=== PATIENT | male | born 1975 | race Caucasian/White ===

== ENCOUNTER 2019-04-20 10:08 | Inpatient (IN) | payer OTHER ==
[2019-04-20] MEDS ORDERED: DEXAMETHASONE SOD PHOSPHATE 4 MG/ML 1 ML VIAL IV STA (10:50)
[2019-04-20] MEDS ORDERED: HYDROmorphone 0.5 MG/0.5 ML SYRINGE IVP STA (10:50)
[2019-04-20] MEDS ORDERED: DIAZEPAM 5 MG/ML 2 ML INJ IVP STA (10:50)
--- NOTE | 2019-04-20 11:10 | ED ---
Back Pain HPI - General Chief Complaint: Back Pain/Injury Stated Complaint: severe back pain, leg pain Time Seen by Provider: 04/20/19 10:27 Source: patient Limitations: no limitations - History of Present Illness Initial Comments: 44-year-old male past me past medical history presenting today for chief complaint of low back pain rating down left leg to foot. Patient states this has been ongoing for quite some time and was scheduled for outpatient MRI after the first of the year. She denies any specific injury follows trauma to the back denies IV drug use fevers loss of bowel bladder control urinary retention loss of sensation or weakness of the lower extremities. Denies any rectal dysfunction. Patient denies any history of cancer. Or spasticity of the extremity. Patient states he initially was able to tolerate the symptoms however they've been worsening for the past day. Patient states is unable to find a comfortable position and can hardly walk secondary to the pain review systems negative - Related Data Home Medications Medication Instructions Recorded Confirmed Gabapentin [Neurontin] 200 mg PO HS 04/20/19 04/20/19 Hydrocodone/Acetaminophen [[place] 1 tab PO DAILY PRN 04/20/19 04/20/19 5-325] predniSONE See Taper PO DIRECTED 04/20/19 04/20/19 Allergies Allergy/AdvReac Type Severity Reaction Status Date / Time No Known Allergies Allergy Verified 04/20/19 12:26 Review of Systems ROS Statement: Those systems with pertinent positive or pertinent negative responses have been documented in the HPI. ROS Other: All systems not noted in ROS Statement are negative. Past Medical History Past Medical History: No Reported History Additional Past Medical History / Comment(s): chronic back pain History of Any Multi-Drug Resistant Organisms: None Reported Past Surgical History: No Surgical Hx Reported Past Psychological History: No Psychological Hx Reported Smoking Status: Former smoker Past Alcohol Use History: Occasional Past Drug Use History: None Reported General Exam - General Exam Comments Initial Comments: General: The patient is awake and alert, in no distress, and does not appear acutely ill. Eye: +3 m pupils are equal, round and reactive to light, extra-ocular movements are intact. No nystagmus. There is normal conjunctiva bilaterally. No signs of icterus. Ears, nose, mouth and throat: There are moist mucous membranes and no oral lesions. Neck: The neck is supple, there is no tenderness or JVD. Cardiovascular: There is a regular rate and rhythm. No murmur, rub or gallop is appreciated. Respiratory: Lungs are clear to auscultation, respirations are non-labored, breath sounds are equal. No wheezes, stridor, rales, or rhonchi. Gastrointestinal: Soft, non-distended, non-tender abdomen without masses or organomegaly noted. There is no rebound or guarding present. Musculoskeletal: Normal inspection of the thoracic or lumbar spine box and left lower extremity. No leg swelling +2 dorsalis pedis pulses equal in comparison bilaterally. Patient has normal strength of the lower extremities equal comparison bilaterally. Sensation including saddle region. No myoclonus or spasms noted. Neurological: A&O x 3. CN II-XII intact grossly, There are no obvious motor or sensory deficits. Coordination appears grossly intact. Speech is normal. Skin: Skin is warm and dry and no rashes or lesions are noted. Psychiatric: Cooperative, appropriate mood & affect, normal judgment. Limitations: no limitations Course Vital Signs 04/20/19 04/20/19 10:23 14:05 Temperature 97.6 F Pulse Rate 61 78 Respiratory 18 20 Rate Blood Pressure 135/87 128/74 O2 Sat by Pulse 98 99 Oximetry Medical Decision Making - Medical Decision Making 44-year-old male presenting today for chief complaint of left leg pain. No focal neurological deficits. Patient has full strength denies symptomology of cauda equina. No physical exam findings consistent no weakness of sensation deficits. Patient states his pain is intractable he was given multiple medications emergency department. At this time feel that patient's unsafe going home given his difficulty ambulating secondary to pain and recommended admission and observation for orthopedic consultation and inpatient MRI of the lumbar spine. Patient is agreeable prefers this care plan I discussed case attending provider spoke with the admitting provider Dr. Ramirez who accepted admission and care plan Once patient admitted, I did seem him ambulate to the bathroom, fully weight bearing around 3PM. Disposition Clinical Impression: Intractable pain, Radiculopathy, Leg pain, left Disposition: ADMITTED IP TO THIS HOSP Condition: Stable Is patient prescribed a controlled substance at d/c from ED?: No Time of Disposition: 12:33 Decision to Admit Reason: Admit from EC Decision Date: 04/20/19 Decision Time: 12:33
[2019-04-20] MEDS ORDERED: KETOROLAC 30 MG/ML 1 ML VIAL IVP STA (12:05)
[2019-04-20] MEDS ORDERED: NALOXONE 0.4 MG/ML 1 ML VIAL IV PRN (12:08)
[2019-04-20] MEDS ORDERED: ONDANSETRON 4 MG/2 ML VIAL IVP PRN (12:08)
[2019-04-20] MEDS: SODIUM CHLORIDE 0.9% 1,000 ML IV SCH (12:29)
[2019-04-20] MEDS ORDERED: HYDROcodone/APAP 10-325MG 1 EACH TAB PO PRN (13:36)
[2019-04-20] MEDS: HYDROmorphone 0.5 MG/0.5 ML SYRINGE IVP PRN ×2 (14:03→21:21)
[2019-04-20] MEDS: KETOROLAC 30 MG/ML 1 ML VIAL IVP PRN (17:48)
[2019-04-20] MEDS ORDERED: GABAPENTIN 100 MG CAP PO SCH (21:00)
[2019-04-21] MEDS: KETOROLAC 30 MG/ML 1 ML VIAL IVP PRN ×2 (01:33→07:56)
[2019-04-21] MEDS: HYDROmorphone 0.5 MG/0.5 ML SYRINGE IVP PRN ×4 (05:08→19:30)
[2019-04-21] MEDS ORDERED: POLYETHYLENE GLYCOL 3350 17 GM POWD.PACK PO PRN (12:12)
[2019-04-21] MEDS ORDERED: HYDROcodone/APAP 7.5-325MG 1 EACH TAB PO PRN (12:18)
[2019-04-21] MEDS ORDERED: DOCUSATE 100 MG CAP PO PRN (12:23)
--- NOTE | 2019-04-21 13:09 | XR ---
EXAMINATION TYPE: XR lumbar spine with bend/flex , 7 VIEWS DATE OF EXAM ORDERED: 04/21/2019 HISTORY: lumbar radiculopathy. COMPARISON: None. FINDINGS: Vertebral body height and alignment are maintained. There is no spondylolysis or spondylol isthesis. No abnormal motion of the spine is noted in flexion or extension. The facets are unremarkab le. The pedicles are intact. IMPRESSION: NORMAL LUMBAR SPINE.
[2019-04-21] MEDS: SODIUM CHLORIDE 0.9% 1,000 ML IV SCH (13:16)
--- NOTE | 2019-04-21 14:31 | MR ---
EXAMINATION TYPE: MR lumbar spine wo con DATE OF EXAM: 04/21/2019 COMPARISON: Plain film dated 04/21/2019 HISTORY: Acute LBP, LLE radic TECHNIQUE: Multiplanar, multisequence images of the lumbar spine were acquired. L1-L2: Normal disc appearance without desiccation. No herniation, protrusion or disc bulging. No ca nal stenosis is present. Foramina are patent bilaterally. L2-L3: Normal disc appearance without desiccation. No herniation, protrusion or disc bulging. No ca nal stenosis is present. Foramina are patent bilaterally. L3-L4: Normal disc appearance without desiccation. No herniation, protrusion or disc bulging. No ca nal stenosis is present. Foramina are patent bilaterally. L4-L5: Normal disc appearance without desiccation. No herniation, protrusion or disc bulging. No ca nal stenosis is present. Foramina are patent bilaterally. L5-S1: There is loss of disc height and signal at L5-S1. Posterior left paracentral disc herniation l ikely causes mass effect on the left S1 nerve root. No significant spinal stenosis or foraminal encro achment. Lumbar segments are intact. No paraspinal masses are identified. Conus medullaris has a normal appe arance. Lumbar vertebral bodies show preserved height and alignment. Bone marrow signal is maintained . IMPRESSION: Left posterior paracentral disc herniation L5-S1, correlate for left S1 radiculopathy.
[2019-04-21] MEDS: HYDROcodone/APAP 7.5-325MG 1 EACH TAB PO PRN ×2 (15:57→20:38)
--- NOTE | 2019-04-21 17:01 | P.CNOR ---
History of Present Illness - [facility] Consult date: 04/21/19 Consult reason: back pain History of present illness: Patient is a pleasant 44 year old male seen at bedside this morning in consultation for low back pain. He was admitted through the ED yesterday after increased and sustained low back pain with left lower extremity radicular complaints. He states that he first started with the low back pain around March 12, 2019 without injury. The symptoms progressed and has been being treated by his PCP including oral corticosteroids. No studies have been take to date. His pain progressed this past week with pain radiating down his left leg to his ankle/foot. He has had difficulty with ambulating and ADLs due to the pain despite the multi-day course of corticosteroids. He has had intermittent numbness or tingling into the left toes. He denies saddle anesthesia or loss of bowel/bladder. His pain continues this am without much improvement. He has no other new complaints. He denies weakness, fever, chills, chest pain, abdominal pain, shortness of breath, N/V, slurred speech, headaches, or other. Review of Systems All systems: negative Constitutional: Denies chills, Denies fever Eyes: denies blurred vision, denies pain Ears, nose, mouth and throat: Denies headache, Denies sore throat Cardiovascular: Denies chest pain, Denies shortness of breath Respiratory: Denies cough Gastrointestinal: Denies abdominal pain, Denies diarrhea, Denies nausea, Denies vomiting Musculoskeletal: Denies myalgias Integumentary: Denies pruritus, Denies rash Neurological: Reports numbness, Denies ataxia, Denies weakness Psychiatric: Denies anxiety, Denies depression Endocrine: Denies fatigue, Denies weight change Past Medical History Past Medical History: No Reported History Additional Past Medical History / Comment(s): chronic back pain, murmur History of Any Multi-Drug Resistant Organisms: None Reported Past Surgical History: No Surgical Hx Reported Past Psychological History: No Psychological Hx Reported Smoking Status: Former smoker Past Alcohol Use History: Occasional Past Drug Use History: None Reported - Past Family History Mother Family Medical History: Diabetes Mellitus, Hypertension Medications and Allergies Home Medications Medication Instructions Recorded Confirmed Type Gabapentin [Neurontin] 200 mg PO HS 04/20/19 04/20/19 History Hydrocodone/Acetaminophen [[place] 1 tab PO DAILY PRN 04/20/19 04/20/19 History 5-325] predniSONE See Taper PO DIRECTED 04/20/19 04/20/19 History Allergies Allergy/AdvReac Type Severity Reaction Status Date / Time No Known Allergies Allergy Verified 04/20/19 12:26 Physical Examination Inspection of the back and lumbar spine is benign. There is no deformity, erythema, echymoses, swelling or wounds. There is paraspinal spasm. Nontender along midline and no stepoff. No fluctuance or fluid collection. It is not hot to touch. Lower extremities: There is a positive left straight leg raise. Negative crossover. Motor appears to be intact 5/5 at L2-S1 myotomes bilaterally. Sensation to light touch is intact equally bilaterally at L2-S1 Dermatomes. Knee jerk and ankle jerk reflexes are 1+ bilaterally. Toes are downgoing with Babinski. Negative clonus. Calves are SNT. 2+ DP pulses present. Assessment and Plan (1) Radiculopathy Narrative/Plan: Patient is likely suffering from a lower lumbar (L4/5 or L5/S1) radiculopathy on the left side. I have ordered lumbar xrays and MRI. Continue pain management where I recommended: increasing gabapentin, taking oral pain meds in lieu of IV pain meds, switching to PO ketorlac and holding corticosteroids (as he has been taking for several days without improvement), and a muscle relaxant. Also advised him to do no bending at waist, lifting or twisting. Will make further recommendations pending his clinical course and Xray/MRI results. I discussed interventions may include epidural steroid injection vs surgical intervention. Current Visit: Yes Status: Acute Priority: Medium Code(s): M54.10 - R ADICULOPATHY, SITE UNSPECIFIED SNOMED Code(s): 52346544 Time with Patient: Greater than 30
[2019-04-21] MEDS: GABAPENTIN 300 MG CAP PO SCH ×2 (17:17→22:44)
[2019-04-21] MEDS: FAMOTIDINE 20 MG TAB PO SCH (20:38)
[2019-04-21] MEDS: ETODOLAC 400 MG TAB PO SCH (20:39)
[2019-04-21] MEDS: CYCLOBENZAPRINE 5 MG TAB PO PRN (22:44)
[2019-04-22] MEDS: HYDROmorphone 0.5 MG/0.5 ML SYRINGE IVP PRN ×3 (02:30→19:51)
[2019-04-22] MEDS: HYDROcodone/APAP 7.5-325MG 1 EACH TAB PO PRN ×4 (03:27→22:09)
[2019-04-22 06:42] LABS: HCT 42.3 % (39.0-53.0); HGB 14.6 gm/dL (13.0-17.5); MCH 29.7 pg (25.0-35.0); MCHC 34.5 g/dL (31.0-37.0); MCV 85.8 fL (80.0-100.0); Mean Platelet Volume 7.6; Platelet Count 168 k/uL (150-450); RBC 4.93 m/uL (4.30-5.90); RDW 12.4 % (11.5-15.5); WBC 7.3 k/uL (3.8-10.6)
[2019-04-22 06:59] LABS: African American GFR (CKD) >90 (>60 ml/min/1.73 sqM); Anion Gap 6 mmol/L; Blood Urea Nitrogen 25 mg/dL (9-20); Carbon Dioxide 29 mmol/L (22-30); Chloride 105 mmol/L (98-107); Glucose 84 mg/dL (74-99); Non-African American GFR(CKD) 86 (>60 ml/min/1.73 sqM); Potassium 4.5 mmol/L (3.5-5.1); Sodium 140 mmol/L (137-145)
[2019-04-22] MEDS: FAMOTIDINE 20 MG TAB PO SCH ×2 (08:09→19:47)
[2019-04-22] MEDS: SENNOSIDES 8.6 MG TAB PO SCH (08:10)
[2019-04-22] MEDS: GABAPENTIN 300 MG CAP PO SCH ×3 (08:10→21:02)
[2019-04-22] MEDS: ETODOLAC 400 MG TAB PO SCH ×2 (08:10→21:02)
--- NOTE | 2019-04-22 09:42 | P.HPIM ---
History of Present Illness H&P Date: 04/21/19 Patient is a pleasant 44-year-old gentleman came in with complaints of severe back pain with the shocklike sensation radiating to both lower extremities which is a radiculopathy patient denied any bowel or bladder incontinence patient received multiple doses of corticosteroids as an outpatient patient can use to have tingling numbness radiating to the back of the legs going up to the toes denies any saddle anesthesia. [facility] surgery was consulted will obtain MRA of the back. Patient will be started on Toradol along with GI prophylaxis patient is presently on Dilaudid which we will try and cut it down will increase the dose of his gabapentin teen. Patient's last bowel movement was yesterday. Review of Systems REVIEW OF SYSTEMS: CONSTITUTIONAL: No fever, no malaise, no fatigue. HEENT: No recent visual problems or hearing problems. Denied any sore throat. CARDIOVASCULAR: No chest pain, orthopnea, PND, no palpitations, no syncope. PULMONARY: No shortness of breath, no cough, no hemoptysis. GASTROINTESTINAL: No diarrhea, no nausea, no vomiting, no abdominal pain. NEUROLOGICAL: No headaches, no weakness, no numbness. HEMATOLOGICAL: Denies any bleeding or petechiae. GENITOURINARY: Denies any burning micturition, frequency, or urgency. MUSCULOSKELETAL/RHEUMATOLOGICAL: As mentioned in HPI ENDOCRINE: Denies any polyuria or polydipsia. The rest of the 14-point review of systems is negative. Past Medical History Past Medical History: No Reported History Additional Past Medical History / Comment(s): chronic back pain, murmur History of Any Multi-Drug Resistant Organisms: None Reported Past Surgical History: No Surgical Hx Reported Past Psychological History: No Psychological Hx Reported Smoking Status: Former smoker Past Alcohol Use History: Occasional Past Drug Use History: None Reported - Past Family History Mother Family Medical History: Diabetes Mellitus, Hypertension Medications and Allergies Home Medications Medication Instructions Recorded Confirmed Type Gabapentin [Neurontin] 200 mg PO HS 04/20/19 04/20/19 History Hydrocodone/Acetaminophen [[place] 1 tab PO DAILY PRN 04/20/19 04/20/19 History 5-325] predniSONE See Taper PO DIRECTED 04/20/19 04/20/19 History Allergies Allergy/AdvReac Type Severity Reaction Status Date / Time No Known Allergies Allergy Verified 04/20/19 12:26 Physical Exam Vitals: Vital Signs Temp Pulse Resp BP Pulse Ox 04/22/19 07:00 97.8 F 66 18 123/79 94 L 04/22/19 01:00 98.5 F 57 L 16 133/83 96 04/21/19 19:13 97.8 F 69 16 131/79 97 04/21/19 14:39 97.6 F 69 18 130/83 96 Intake and Output 04/21/19 04/22/19 04/22/19 22:59 06:59 14:59 Intake Total 590 180 Balance 590 180 Intake: Oral 590 180 Other: Voiding Method Toilet # Voids 1 1 PHYSICAL EXAMINATION: GENERAL: The patient is alert and oriented x3, not in any acute distress. Well developed, well nourished. She is lying in bed in pain HEENT: Pupils are round and equally reacting to light. EOMI. No scleral icterus. No conjunctival pallor. Normocephalic, atraumatic. No pharyngeal erythema. No thyromegaly. CARDIOVASCULAR: S1 and S2 present. No murmurs, rubs, or gallops. PULMONARY: Chest is clear to auscultation, no wheezing or crackles. ABDOMEN: Soft, nontender, nondistended, normoactive bowel sounds. No palpable o rganomegaly. MUSCULOSKELETAL: Did not move the patient because of his severe pain in the back EXTREMITIES: No cyanosis, clubbing, or pedal edema. NEUROLOGICAL: Gross neurological examination did not reveal any focal deficits. SKIN: No rashes. Results CBC & Chem 7: 04/22/19 06:08 04/22/19 06:08 Labs: Abnormal Lab Results - Last 24 Hours (Table) 04/22/19 Range/Units 06:08 BUN 25 H (9-20) mg/dL Thrombosis Risk Factor Assmnt - Choose All That Apply Each Factor Represents 1 point: Age 41-60 years, Obesity (BMI >25) Each Risk Factor Represents 3 Points: Family history of DVT/PE Thrombosis Risk Factor Assessment Total Risk Factor Score: 5 Thrombosis Risk Factor Assessment Level: High Risk Assessment and Plan Plan: Severe low back pain with radicular symptoms patient can barely move at this time: Patient will be started on nonsteroidal anti-inflammatories along with GI prophylaxis along with medication for constipation and neuropathic pain medication gabapentin orthopedic surgery was consulted they evaluated the pa tient, will obtain MRI of the lumbar spine. -GI prophylaxis as mentioned above
[2019-04-22 11:14] VITALS: BMI 32.7
--- NOTE | 2019-04-22 11:39 | P.PN ---
<Lorne Phoenix - Last Filed: 04/22/19 11:32> Subjective Progress Note Date: 04/22/19 Principal diagnosis: Left S1 radiculopathy Patient is seen at bedside this morning. He was seen yesterday in consultation for low back and left leg radicular type symptoms. I ordered x-rays and an MRI of the lumbar spine. We adjusted his medications and he is a little improved today. He has no new complaints. He continues to have left low back pain and left leg radicular symptoms including pain and intermittent numbness and tingling down to the foot. He has no right leg symptoms. He denies weakness. He denies fever or chills or calf pain. He has no new complaints. Objective - Vital Signs Vital signs: Vital Signs Temp 97.8 F 04/22/19 07:00 Pulse 66 04/22/19 07:00 Resp 18 04/22/19 07:00 BP 123/79 04/22/19 07:00 Pulse Ox 94 L 04/22/19 07:00 Intake & Output 04/21/19 04/22/19 04/22/19 18:59 06:59 18:59 Intake Total 590 180 Balance 590 180 Weight 103.419 kg Intake: Oral 590 180 Other: Voiding Method Toilet Toilet # Voids 3 1 - Exam inspection of the lumbar spine is benign. There is no deformity or step-off. No erythema or swelling. He has paraspinal spasming as expected. He continues to have a positive left straight leg raise. Negative crossover. His strength is 5 out of 5 at L2 through S1 myotomes. He has some hypoesthesia along the S1 dermatome on the left. Otherwise L2 through S1 dermatomes are intact equal bilaterally. Reflexes are 1+ knee jerk and ankle jerk. There is no clonus. Negative Babinski. Calves are soft nontender. 2+ dorsalis pedis pulse and 2 second capillary refill present. - Constitutional General appearance: Present: no acute distress - Labs CBC & Chem 7: 04/22/19 06:08 04/22/19 06:08 Labs: Abnormal Lab Results - Last 24 Hours (Table) 04/22/19 Range/Units 06:08 BUN 25 H (9-20) mg/dL - Imaging and Cardiology x-rays and MRI of the lumbar spine reviewed. X-rays reveal no deformity, fractures or instability. MRI of the lumbar spine shows a left paracentral disc herniation at L5-S1 compressing the descending left S1 nerve root. There is no severe canal stenosis throughout the lumbar spine. No other lesions or neural compromise seen. Assessment and Plan (1) Radiculopathy Narrative/Plan: He'll continue his current pain management regimen and activity restrictions. We'll request pain management in-house to perform a left L5-S1 epidural steroid injection to address the herniation and compression of the left S1 nerve root in hopes of alleviating his symptoms and avoiding surgical intervention. We will request it be performed as soon as possible and make further recommendations pending his clinical course. Current Visit: Yes Status: Acute Priority: Medium Code(s): M54.10 - RADICULOPATHY, SITE UNSPECIFIED SNOMED Code(s): 81803491 Time with Patient: Less than 30 <Jarred Pérez - Last Filed: 04/22/19 12:07> Objective - Vital Signs Vital signs: Vital Signs Temp 97.8 F 04/22/19 07:00 Pulse 66 04/22/19 07:00 Resp 18 04/22/19 07:00 BP 123/79 04/22/19 07:00 Pulse Ox 94 L 04/22/19 07:00 Intake & Output 04/21/19 04/22/19 04/22/19 18:59 06:59 18:59 Intake Total 590 180 Balance 590 180 Weight 103.419 kg Intake: Oral 590 180 Other: Voiding Method Toilet Toilet # Voids 3 1 - Labs CBC & Chem 7: 04/22/19 06:08 04/22/19 06:08 Labs: Abnormal Lab Results - Last 24 Hours (Table) 04/22/19 Range/Units 06:08 BUN 25 H (9-20) mg/dL Assessment and Plan Plan: The patient is seen and examined at bedside today. I discussed the case with edy Man our physician senior office support assistant sosa I agree with his prior notes. I reviewed the MRI as well. The patient has a large disc herniation at L5-S1 on the left which correlated well with his left lower extremity radiculopathy with left lower extremity hyperesthesia and small metal weakness. He has positive straight leg raise. He is not having changes in his bowel bladder function. His pain stems directly from his herniated nucleus pulses. He has essentially been failing conservative treatment over the past month and I think is a good candidate for an epidural steroid injection. We will have anesthesia pain management see him in regards to the possibility of epidural steroid injections at L5-S1 to see if that helps his radiculopathy so that he would be able to continue manage at home. Once he has his injection if he is couple going home I think it is stable from a ball or the spine standpoint. He is a good candidate for surgical intervention for laminectomy discectomy at L5-S1 with conservative measures were to fail. I discussed this with him at length discussed the nature of surgery and his herniated disc and however relates to his pain. He seems to understand these things would like to try to exhaust all conservative treatment including epidural steroid injections before considering surgical intervention. I think that is quite reasonable and I can follow him up in approximately 1-2 weeks' time for recheck evaluation to see how he is doing with his conservative treatment epidural injections and to consider the possibility of surgery. He is not having any improvement
--- NOTE | 2019-04-22 11:50 | P.PN ---
Subjective She is admitted for back pain medical neuropathy found to have disc herniation at L5-S1 level patient pain regimen after changing it nonsteroidal anti- inflammatories is much better but patient is still barely able to move patient will undergo epidural steroid injection most probably tomorrow Objective - Vital Signs Vital signs: Vital Signs Temp 97.8 F 04/22/19 07:00 Pulse 66 04/22/19 07:00 Resp 18 04/22/19 07:00 BP 123/79 04/22/19 07:00 Pulse Ox 94 L 04/22/19 07:00 Intake & Output 04/21/19 04/22/19 04/22/19 18:59 06:59 18:59 Intake Total 590 180 Balance 590 180 Weight 103.419 kg Intake: Oral 590 180 Other: Voiding Method Toilet Toilet # Voids 3 1 - Exam PHYSICAL EXAMINATION: GENERAL: The patient is alert and oriented x3, not in any acute distress. Well developed, well nourished. She is lying in bed in pain HEENT: Pupils are round and equally reacting to light. EOMI. No scleral icterus. No conjunctival pallor. Normocephalic, atraumatic. No pharyngeal erythema. No t hyromegaly. CARDIOVASCULAR: S1 and S2 present. No murmurs, rubs, or gallops. PULMONARY: Chest is clear to auscultation, no wheezing or crackles. ABDOMEN: Soft, nontender, nondistended, normoactive bowel sounds. No palpable organomegaly. MUSCULOSKELETAL: Did not move the patient because of his severe pain in the back EXTREMITIES: No cyanosis, clubbing, or pedal edema. NEUROLOGICAL: Gross neurological examination did not reveal any focal deficits. SKIN: No rashes. - Labs CBC & Chem 7: 04/22/19 06:08 04/22/19 06:08 Labs: Abnormal Lab Results - Last 24 Hours (Table) 04/22/19 Range/Units 06:08 BUN 25 H (9-20) mg/dL Assessment and Plan Plan: Severe low back pain with radicular symptoms, disc herniation at the L5-S1 level patient can barely move at this time: Patient will be started on nonsteroidal anti-inflammatories along with GI prophylaxis along with medication for constipation and neuropathic pain medication gabapentin orthopedic , MRI of lumbar spine as mentioned above and possible epidural steroid injection most probably tomorrow -GI prophylaxis as mentioned above
[2019-04-22] MEDS: CYCLOBENZAPRINE 5 MG TAB PO PRN ×2 (12:17→22:10)
[2019-04-22] MEDS: SODIUM CHLORIDE 0.9% 1,000 ML IV SCH (12:17)
--- NOTE | 2019-04-22 13:23 | P.PAINCN ---
History of Present Illness - Reason for Consult Consult date: 04/22/19 Lumbar radiculopathy - Chief Complaint Low back pain with radicular pain in the left lower extremity - History of Present Illness 44-year-old male who presents at the [facility] urged her with a chief complaint of low back pain and radicular pain down his left lower extremity to the lateral and plantar aspect of his left foot. He states this injury occurred around mid-March however symptoms regressed until this past . He does not recall any inciting event that exacerbated his current symptoms. VAS today ranges between a 7-8 out of 10 in severity, patient describes it as a constant throbbing, electric, numbing, tingling sensation in the posterior aspect of his left lower extremity into his left foot. He has significant difficulty with forward flexion or sitting in the upright position secondary to exacerbating radicular pain. Laying supine helps alleviate some of the pain. He still has consistent numbness and tingling and throbbing pain in the lateral aspect of his left foot even in the supine position. He denies any bowel or bladder incontinence, saddle anesthesia. Opening current pain medication he's not been evaluated or had any physical therapy or injections for this issue. Patient was placed on a steroid pack and no longer utilizing it. He is on Neurontin 300 mg every 8 hours, Flexeril 5 mg 3 times a day, and Silverpeak 7.5 mg/325 mg in 1-2 tablets every 6 hours as needed. He denies any side effects from the medication, states Neurontin does help the radicular pain in that Silverpeak helps alleviate some of the discomfort. Pain management was consulted for evaluation for epidural steroid injection toward the left L5-S1 interspace. Review of Systems Constitutional: Reports weakness Ears, nose, mouth and throat: Denies headache, Denies sore throat Cardiovascular: Denies chest pain, Denies shortness of breath Respiratory: Denies cough, Denies dyspnea, Denies pain on inspiration Gastrointestinal: Denies abdominal pain, Denies diarrhea, Denies nausea, Denies vomiting Genitourinary: Reports as per HPI Musculoskeletal: Reports as per HPI, Reports gait dysfunction, Reports leg numbness/tingling, Reports limitation of motion, Reports low back pain, Reports muscle cramps, Reports muscle weakness, Reports shooting leg pain Neurological: Reports as per HPI Psychiatric: Denies anxiety, Denies depression Endocrine: Reports as per HPI Hematologic/Lymphatic: Denies easy bleeding, Denies easy bruising, Denies lymphadenopathy, Denies lymphedema, Denies thrombophilia Past Medical History Past Medical History: No Reported History Additional Past Medical History / Comment(s): chronic back pain, murmur History of Any Multi-Drug Resistant Organisms: None Reported Past Surgical History: No Surgical Hx Reported Past Psychological History: No Psychological Hx Reported Smoking Status: Former smoker Past Alcohol Use History: Occasional Past Drug Use History: None Reported - Past Family History Mother Family Medical History: Diabetes Mellitus, Hypertension Medications and Allergies Home Medications Medication Instructions Recorded Confirmed Type Gabapentin [Neurontin] 300 mg PO TID 04/20/19 04/22/19 History Hydrocodone/Acetaminophen [[place]peak 1 tab PO DAILY PRN 04/20/19 04/22/19 History 5-325] Cyclobenzaprine [Flexeril] 5 mg PO TID PRN 04/22/19 04/22/19 History Allergies Allergy/AdvReac Type Severity Reaction Status Date / Time No Known Allergies Allergy Verified 04/20/19 12:26 Physical Exam Vitals: Vital Signs Temp Pulse Resp BP Pulse Ox 04/22/19 07:00 97.8 F 66 18 123/79 94 L 04/22/19 01:00 98.5 F 57 L 16 133/83 96 04/21/19 19:13 97.8 F 69 16 131/79 97 04/21/19 14:39 97.6 F 69 18 130/83 96 Intake and Output 04/21/19 04/22/19 04/22/19 22:59 06:59 14:59 Intake Total 590 180 Balance 590 180 Intake: Oral 590 180 Other: Voiding Method Toilet # Voids 1 1 Weight 103.419 kg - Constitutional General appearance: mild distress, obese - EENT Eyes: PERRLA ENT: hearing grossly normal, normal oropharynx - Cardiovascular Rhythm: regular - Integumentary Integumentary: normal, normal turgor - Neurologic Patellar reflex 2/2 - Musculoskeletal Muscle skeletal physical exam difficult secondary to patient discomfort. Unable to assess range of motion lumbar spine. straight leg raise positive on the left. Musculoskeletal: generalized weakness, left sided weakness - Psychiatric Psychiatric: A&O x's 3, appropriate affect, intact judgment & insight Results Results: MRI lumbar spine: 1. At L5-S1 there is disc desiccation with the left paracentral disc herniation which appears upon left S1 nerve root. CBC & Chem 7: 04/22/19 06:08 04/22/19 06:08 Labs: Abnormal Lab Results - Last 24 Hours (Table) 04/22/19 Range/Units 06:08 BUN 25 H (9-20) mg/dL Assessment and Plan Plan: Assessment: 1. Lumbar radiculopathy - Acute 2. Lumbar degenerative disc disease Plan: 1. Continue current medication regimen. Silverpeak when necessary, Flexeril, Neurontin can be increased to every 6 hours dosing. Patient is tolerating the medication well. 2. We'll get patient scheduled for lumbar epidural steroid injection left L5- S1. Unfortunately, [facility] pain clinic is closed this week. Patient would like epidural injection done with fluoroscopy and prior to the holidays. Option available through us would be to discharge patient and have his initial epidural steroid injection done at our pain clinic in [place]. I informed the patient that subsequent epidural injections could be done here within the Hospital clinic, or when he follows up with Dr. Nascimento, done within his group. Thank you for the consult and for allowing me to participate in this patient's care. PQRS Measure Charge Sheet PQRS Narrative: Smoking Status Former smoker Blood Pressure [Right Arm] 123/79 Blood Pressure 128/74 Pain Intensity [Left Back] 0 Pain Intensity [None] 4 Pain Intensity 7 Pain Scale Used Numeric (1 - 10) Scale Used Non Verbal Pain Indicator Home Medications: Ambulatory Orders Gabapentin [Neurontin] 300 mg PO TID 04/20/19 Hydrocodone/Acetaminophen [Silverpeak 5-325] 1 tab PO DAILY PRN 04/20/19 Cyclobenzaprine [Flexeril] 5 mg PO TID PRN 04/22/19
[2019-04-23 01:53] VITALS: PULSE 70; RESP 16
[2019-04-23] MEDS: HYDROcodone/APAP 7.5-325MG 1 EACH TAB PO PRN ×3 (05:11→11:39)
[2019-04-23 07:43] LABS: African American GFR (CKD) >90 (>60 ml/min/1.73 sqM); Anion Gap 6 mmol/L; Blood Urea Nitrogen 21 mg/dL (9-20); Calcium 8.8 mg/dL (8.4-10.2); Carbon Dioxide 29 mmol/L (22-30); Chloride 105 mmol/L (98-107); Glucose 94 mg/dL (74-99); Non-African American GFR(CKD) >90 (>60 ml/min/1.73 sqM); Potassium 4.6 mmol/L (3.5-5.1); Sodium 140 mmol/L (137-145)
[2019-04-23 07:49] VITALS: BP 126/85; TEMP 97.8
[2019-04-23] MEDS: SENNOSIDES 8.6 MG TAB PO SCH (08:51)
[2019-04-23] MEDS: FAMOTIDINE 20 MG TAB PO SCH (08:51)
[2019-04-23] MEDS: GABAPENTIN 300 MG CAP PO SCH (08:51)
[2019-04-23] MEDS: ETODOLAC 400 MG TAB PO SCH (08:51)
--- NOTE | 2019-04-23 09:15 | P.PN ---
Progress Note - Text Progress Note Date: 04/23/19 Orthopedic spine: History of present illness: Patient is a pleasant 44-year-old male who is seen and examined at bedside for further evaluation for his low back pain and left lower extremity radiculopathy. He was seen and examined yesterday by pain management. Patient is planning to undergo an epidural injection. The pain clinic is closed at [facility] this week. Patient is currently planning for discharge home today and has an appointment set with the pain management clinic in [place], [place]. He'll plan to have an injection prior to the holidays. He feels at this time he would like to exhaust conservative treatment options before discussing possible surgical intervention. He does continue to have significant pain relief of the lumbar spine, down the posterior thigh and calf towards the foot. His pain is exacerbated with increased activities. He denies any right lower extremity weakness radiculopathy. He states his symptoms initially started in mid March 2019. He feel his symptoms were present but fairly well controlled until this past , 04/19/2019, and he's had significant pain down the left lower extremity since that time. He is ready for discharge home today as he is looking forward to having his injection. Physical exam: Patient is awake, alert, and oriented 3 Vital signs stable Good chest excursion with deep inspiration and expiration Examination of lumbar spine reveals skin is intact with no abrasions, or aspirations, or bruises; no erythema, purulence or signs of infection Dorsiflexion, plantarflexion, and extensor hallucis longus positive sustained bilaterally Increased pain with plantarflexion against resistance on the left Lower extremity strength 5/5 bilaterally Positive straight leg test on the left Negative Lasegue's test bilaterally No signs or symptoms of DVT; no calf pain No pain with internal and external rotation of the hips bilaterally Neurovascularly intact Assessment: Low back pain and left lower extremity radiculopathy L5-S1 large left sided herniated nucleus pulposus Left L5-S1 neuroforaminal stenosis Plan: 1. Patient is currently planning for discharge home today to follow up for further evaluation in [place], [place] with an appointment set for 2:00 PM today to undergo an epidural steroid injection. At this time, patient is clear for discharge from orthopedic spine standpoint. We will plan him to follow-up in the outpatient setting in approximately 1-2 weeks for further evaluation. We will discuss further treatment options at that time depending on how he is p rogressing through conservative treatment. We did discuss he should try to avoid excessive bending, Kiera, and lifting activities. 2. Patient will continue be seeing examined by medicine
--- NOTE | 2019-04-23 09:27 | P.DS ---
Providers Date of admission: 04/22/19 12:30 Expected date of discharge: 04/23/19 Attending physician: Aguila Ramirez MD Consults: 04/20/19 12:33 Consult Physician Routine Consulting Provider: Jarred Pérez Consult Reason/Comments: low back pain rad down left leg, intrctable pain Do you want consulting provider notified?: Yes, Notify in am 04/22/19 12:01 Consult to Anesthesia Routine Consulting Provider: Anesthesia,Services Consult Reason/Comments: Interventional pain management for ANTONINO L5-S1 04/22/19 12:03 Consult Physician Urgent Consulting Provider: Sergio Klein Consult Reason/Comments: possible ANTONINO at L5-S1 for LLE radiculopaty and HNP Do you want consulting provider notified?: Yes Primary care physician: Litzy Diaz [facility] Course: Patient is a pleasant 44-year-old gentleman came in with complaints of severe back pain with the shocklike sensation radiating to both lower extremities which is a radiculopathy patient denied any bowel or bladder incontinence patient received multiple doses of corticosteroids as an outpatient patient can use to have tingling numbness radiating to the back of the legs going up to the toes denies any saddle anesthesia. Patient's last bowel movement was yesterday. Pt was admitted to medicine and spine surgery consulted. His pain was controlled with increased dose of gabapentin and norco for breakthrough. He underwent MRI of his lumbar spine which did show broad based disc bulge L5-S1 compressing L nerve root. He was seen by pain management and scheduled for outpatient epidural steroid injection. He is discharged in stable condition and will continue gabapentin and flexeril with norco for breakthrough pain. He will undergo ANTONINO outpatient today and follow up with PCP and Ortho within 1-2 weeks. Discharge exam: Gen: obese, well developed, NAD HEENT: mmm, normocephalic CV: RRR, no murmur Lungs: CTAB MSK: Straight leg positive on L, patellar reflex 1+ on L Patient Condition at Discharge: Stable Plan - Discharge Summary Discharge Rx Participant: No New Discharge Prescriptions: New Gabapentin [Neurontin] 300 mg PO TID cap Continue Cyclobenzaprine [Flexeril] 5 mg PO TID PRN #60 tab PRN Reason: Spasms Discontinued Hydrocodone/Acetaminophen [[place] 5-325] 1 tab PO DAILY PRN PRN Reason: Pain Gabapentin [Neurontin] 300 mg PO TID Discharge Medication List Cyclobenzaprine [Flexeril] 5 mg PO TID PRN #60 tab 04/23/19 [Rx] Gabapentin [Neurontin] 300 mg PO TID cap 04/23/19 [Rx] Follow up Appointment(s)/Referral(s): Litzy Diaz DO [Primary Care Provider] - 1-2 days Discharge Disposition: HOME SELF-CARE
== END 2019-04-23 11:55 | disposition home or self-care (01) | DRG 552 ==
LOC: EC 10:08 → 5NMEDONC 12:52 → 4SSUR 14:44 → OBSVTOIN 04-22 12:30
PROVIDERS: ADMIT Family Medicine; ATTEND Family Medicine
DX: M51.17 Intervertebral disc disorders with radiculopathy, lumbosacral region (principal); E66.9 Obesity, unspecified; K59.00 Constipation, unspecified; M51.16 Intervertebral disc disorders with radiculopathy, lumbar region; G62.9 Polyneuropathy, unspecified; Z82.49 Family history of ischemic heart disease and other diseases of the circulatory system; Z83.3 Family history of diabetes mellitus; Z87.891 Personal history of nicotine dependence; Z68.35 Body mass index [BMI] 35.0-35.9, adult
CPT/HCPCS: 72114; 72148; 80048; 85027; 96374; 96375; 96376; 99284

== ENCOUNTER → 2019-11-08 | Outpatient (CLI) | payer OTHER ==
--- NOTE | 2019-11-08 17:21 | CONS ---
CONSULTATION DATE OF SERVICE: 11/08/2019 This patient is a 44-year-old gentleman who has been evaluated in the sleep center for possible obstructive sleep apnea-hypopnea syndrome. HISTORY OF PRESENT ILLNESS/SLEEP-WAKE EVALUATION: Patient's usual sleep schedule is from midnight or 1 a.m. until 6 or 8 a.m. on weekdays and until 8:30 a.m. on weekends. He does have problems with falling asleep, has TV set in the bedroom. He snores. Recently, while he had surgery for a herniated disc, he was told in the hospital that he has episodes of stopped breathing while in sleep. In the morning he wakes up tired, usually does not take naps. [place] Sleepiness Scale is 4. He wakes up from sleep around 3 times with nocturia, and in the morning he wakes up tired. PAST SURGICAL HISTORY: Surgery for herniated disc in October of 2019. MEDICATIONS: None. FAMILY HISTORY: Stroke and cancer in his grandparents. REVIEW OF SYSTEMS: Multiple awakenings from sleep, tiredness after awakening in the morning. SOCIAL HISTORY: Positive for smoking about one pack a day for 15 years. Quit 5 years ago. Alcohol consumption occasional. PHYSICAL EXAMINATION: GENERAL: A pleasant gentleman without distress. VITAL SIGNS: BP 119/82, HR 66, RR 16, height 5 feet 10 inches, weight 231, body mass index 32.6, temperature 98.0, oxygen saturation at room air 98%. HEENT: PERRLA, EOMI. Evaluation of oropharynx showed tongue protrudes midline. Low position of soft palate. Mallampati IV. NECK: Supple. No JVD. Thyroid is not palpable. Wide neck measuring 17-1/4 inches in circumference. LUNGS: Clear to percussion and to auscultation. Good air exchange. No wheezing or rhonchi. HEART: S1, S2 regular. No murmurs, gallops or rubs. ABDOMEN: Obese. EXTREMITIES: No clubbing or cyanosis. INTERLOCKER: Awake, alert, and oriented X3. Cranial nerves 2 to 7 intact. There is no fasciculation or atrophy. noted. No focal deficits observed. IMPRESSION: 1. Loud snoring, witnessed episodes of stopped breathing during sleep, extremely low position of soft palate, wide neck; obstructive sleep apnea-hypopnea syndrome. 2. Obesity; body mass index 32.6. 3. Status post surgery for herniated disc in October of 2019. PLAN: 1. Polysomnography for evaluation of patient's breathing during sleep. 2. CPAP/BiPAP titration if sleep study confirms obstructive sleep apnea-hypopnea syndrome. 3. Preferable position during sleep on the side. 4. No driving if patient feels any sleepiness. 5. I will see patient for follow up visit to explain results of testing and following plan. Thank you very much for referring this patient for consultation. Sincerely, Deion Montes De Oca MD, PhD, FAASM Diplomat of [employer] [employer] Military Education Coordinator of [facility] [place] MMODL / IJN: [id number] /
== END | disposition home or self-care (01) ==
LOC: SLEEP 14:49
PROVIDERS: ATTEND Internal Medicine
DX: G47.33 Obstructive sleep apnea (adult) (pediatric) (principal); E66.9 Obesity, unspecified; Z68.32 Body mass index [BMI] 32.0-32.9, adult; Z98.890 Other specified postprocedural states; Z87.891 Personal history of nicotine dependence
CPT/HCPCS: 99211

== ENCOUNTER → 2020-02-07 | Outpatient (CLI) | payer OTHER ==
--- NOTE | 2020-02-07 20:48 | SFUN ---
SLEEP CENTER FOLLOW UP NOTE SLEEP CENTER FOLLOW-UP NOTE: DATE OF SERVICE: 02/07/2020 This patient is a 45-year-old gentleman who has been followed in Sleep Center for treatment of obstructive sleep apnea-hypopnea syndrome. Today is the patient's first visit after he was started on treatment with CPAP. I discussed results of his home sleep apnea test with the patient in detail. After using his CPAP equipment, he feels better during the night and during the day. But he still sometimes has problems falling asleep at the beginning of the night. I checked his CPAP unit. Range of the pressure is 5 to 15, average pressure 10 cm of water, usage 100% of the nights and 17/30 nights for more than 4 hours per month. Leak is 17 L/minute, which is borderline. Apnea-hypopnea index is totally normal at 1.9. [place] Sleepiness Scale today is 10. CURRENT MEDICATIONS: None. PHYSICAL EXAMINATION: GENERAL: A pleasant patient in no distress. VITAL SIGNS: BP 135/80, HR 64, RR 15, weight 236, temperature 98.2, oxygen saturation at room air 97%. HEENT: PERRLA, EOMI. Evaluation of oropharynx showed tongue protrudes midline. Extremely low position of soft palate. Mallampati IV. NECK: Supple. No JVD. Thyroid is not palpable. LUNGS: Clear to percussion and to auscultation. Good air exchange. No wheezing or rhonchi. HEART: S1, S2 regular. No murmurs, gallops or rubs. ABDOMEN: Obese. EXTREMITIES: No clubbing or cyanosis. ETL ARCHITECT: Awake, alert, and oriented X3. Cranial nerves 2 to 7 intact. There is no fasciculation or atrophy. noted. No focal deficits observed. IMPRESSION: 1. Obstructive sleep apnea-hypopnea syndrome, under control with CPAP. The patient is benefitting from treatment. 2. Insomnia. 3. Obesity. 4. Status post surgery for herniated disc in October 2019. PLAN: 1. Patient will continue to use PAP equipment every night for the whole night. 2. Sleep hygiene with regular time in bed for at least 7-1/2 to 8 hours. 3. Precautions related to driving. No driving if feeling sleepiness. 4. I will maintain all necessary prescription for PAP supplies including mask, tube, filters. 5. Watching weight. 6. No driving if feeling sleepiness. 7. Follow-up visit in 6 months or earlier if patient has any problems. 8. I discussed with the patient psychological techniques for treatment of insomnia, including paradoxical intention and stimulus control. Thank you very much for allowing me to participate in the management of your patient. Sincerely, Deion Montes De Oca MD, PhD, FAASM Diplomat of [employer] Maker of [facility] [place] MMODL / JESUN: [id number] /
== END | disposition home or self-care (01) ==
LOC: SLEEP 14:41
PROVIDERS: ATTEND Internal Medicine
DX: G47.33 Obstructive sleep apnea (adult) (pediatric) (principal); E66.9 Obesity, unspecified; Z99.89 Dependence on other enabling machines and devices; Z98.890 Other specified postprocedural states

== ENCOUNTER → 2020-04-17 | Outpatient (CLI) | payer OTHER ==
--- NOTE | 2020-04-17 18:10 | SFUN ---
SLEEP CENTER FOLLOW UP NOTE DATE OF SERVICE: 04/17/2020 This patient is a 45-year-old gentleman who has been followed in Sleep Center for treatment of obstructive sleep apnea-hypopnea syndrome. The patient successfully continues to use his CPAP equipment without problem. During his previous visit we changed his mask to the nasal type. [place] Sleepiness Scale today is 9. I checked his CPAP unit. Range of the pressure is 5 to 15 on automatic regimen. Average pressure 9 cm of water. Usage is 27/30 nights, and 21/30 nights for more than 4 hours, which is normal compliance. Average usage 5.5 hours per night. Leak is 19 L/minute, which is borderline. Apnea-hypopnea index is 1.6, which is perfect. MEDICATIONS: None at the present time. PHYSICAL EXAMINATION: GENERAL: A pleasant patient in no distress. VITAL SIGNS: BP 122/70, HR 64, RR 15, height 5 feet 10 inches, weight 233 pounds, BMI 33.4, temperature 98.0. Oxygen saturation at room air 97%. HEENT: PERRLA, EOMI. Evaluation of oropharynx showed tongue protrudes midline. Low position of soft palate. Mallampati IV. NECK: Supple. No JVD. Thyroid is not palpable. LUNGS: Clear to percussion and to auscultation. Good air exchange. No wheezing or rhonchi. HEART: S1, S2 regular. No murmurs, gallops or rubs. ABDOMEN: Obese. EXTREMITIES: No clubbing or cyanosis. PEDIATRIC OPHTHALMOLOGIST: Awake, alert, and oriented X3. Cranial nerves 2 to 7 intact. There is no fasciculation or atrophy. noted. No focal deficits observed. IMPRESSION: 1. Obstructive sleep apnea-hypopnea syndrome. Patient demonstrated good compliance with treatment, benefitting from treatment after his mask was changed. 2. History of insomnia. 3. Obesity. 4. Status post surgical treatment of herniated disc in October of 2019. PLAN: 1. Patient will continue to use PAP equipment every night for the whole night. 2. Sleep hygiene with regular time in bed for at least 7-1/2 to 8 hours. 3. Precautions related to driving. No driving if feeling sleepiness. 4. I will maintain all necessary prescription for PAP supplies including mask, tube, filters. 5. Watching weight. 6. No driving if feeling sleepiness. 7. Follow-up visit in 6 months or earlier if patient has any problems. Thank you very much for allowing me to participate in the management of your patient. Sincerely, Deion Montes De Oca MD, PhD, FAASM Diplomat of [place] Kit Assembler of [facility] [place] MMODL / JOEY: [id number] /
== END | disposition home or self-care (01) ==
LOC: SLEEP 16:01
PROVIDERS: ATTEND Internal Medicine
DX: G47.33 Obstructive sleep apnea (adult) (pediatric) (principal); Z99.89 Dependence on other enabling machines and devices; E66.9 Obesity, unspecified; Z98.890 Other specified postprocedural states

== ENCOUNTER → 2020-10-27 | Outpatient (CLI) | payer OTHER ==
--- NOTE | 2020-10-27 11:30 | XR ---
EXAMINATION TYPE: XR chest 2V DATE OF EXAM: 10/27/2020 COMPARISON: NONE TECHNIQUE: PA and lateral views submitted. HISTORY: Chest pain FINDINGS: The lungs are clear and there is no pneumothorax, pleural effusion, or focal pneumonia. Heart size normal. No overt failure. Chronic appearing left clavicular deformity. IMPRESSION: 1. No acute process.
== END | disposition home or self-care (01) ==
LOC: RADXRMAIN 11:05
PROVIDERS: ATTEND Physician Assistant Medical
DX: R07.9 Chest pain, unspecified (principal)
CPT/HCPCS: 71046

== ENCOUNTER → 2021-03-02 | Outpatient (CLI) | payer OTHER ==
--- NOTE | 2021-03-02 15:03 | EST ---
EXERCISE STRESS DATE OF STUDY: 03/02/2021 AGE: 46 SEX: M HT: 5'10". WT: 215 lbs. PROTOCOL: Román STAGE: 4 DURATION OF EXERCISE: 10:30 HEART RATE REST: 61 BLOOD PRESSURE REST: 118/80 MAXIMUM HEART RATE ACHIEVED: 168 MAXIMUM BLOOD PRESSURE: 189/80 85% MPHR: 150 100% MPHR: 176 METS: 12.1 INDICATIONS: Chest pain CLINICAL INFORMATION: STRESS DATA: Pre-testing physical examination showed a heart rate of 61, pressure 118/80 mmHg. Baseline EKG showed sinus mechanism. The patient exercised on the treadmill according to Román protocol for a total of 10 minutes and 30 seconds and achieved 12.1 METS. Max heart rate was 168, which is about 95% of maximum predicted heart rate, and maximum blood pressure was 189/80 mmHg. Clinically the patient did not have any symptoms. The EKG did not show any significant ST or T-wave abnormalities concerning for ischemia. CONCLUSIONS: 1. Excellent exercise tolerance. 2. Normal EKG in response to exercise. 3. Excellent augmentation in the blood pressure and heart rate in response to exercise. 4. Essentially normal exercise treadmill stress test for the patient. MMODL / IJN: [id number] /
== END | disposition home or self-care (01) ==
LOC: RADNMMAIN 08:39
PROVIDERS: ATTEND Family Medicine
DX: R07.9 Chest pain, unspecified (principal)
CPT/HCPCS: 93017

== ENCOUNTER 2024-01-17 14:12 | Emergency (ER) | payer OTHER ==
[2024-01-17 14:16] VITALS: RESP 18
--- NOTE | 2024-01-17 15:00 | ED ---
Back Pain HPI - General Chief Complaint: Back Pain/Injury Stated Complaint: Back Pain Time Seen by Provider: 01/17/24 14:32 Source: patient, RN notes reviewed Limitations: no limitations - History of Present Illness Initial Comments: 49-year-old male presenting with low back pain x 4 days. Describes dull pain in the lower back radiating down left buttocks into left leg with associated numbness and tingling. Patient states symptoms are worse in the morning and improve as the day goes on. He is able to ambulate. Denies trauma or injury. Denies low-grade fevers or IV drug use. States he has a history of a herniated disc several years ago with similar symptoms and at this time Dr. Pérez performed surgery to correct discs. Patient has upcoming appointment with Dr. Pérez in 2 days. Denies loss of bowel or bladder control. - Related Data Home Medications Medication Instructions Recorded Confirmed Aspirin EC [Ecotrin Low Dose] 81 mg PO DAILY 01/17/24 01/17/24 lisinopriL [Zestril] 2.5 mg PO DAILY 01/17/24 01/17/24 Previous Rx's Medication Instructions Recorded Cyclobenzaprine [Flexeril] 10 mg PO TID PRN #15 tab 01/17/24 HYDROcodone/APAP 7.5-325MG [[place] 1 tab PO Q6HR PRN 3 Days #12 tab 01/17/24 7.5-325] Allergies Allergy/AdvReac Type Severity Reaction Status Date / Time No Known Allergies Allergy Verified 01/17/24 15:10 Review of Systems ROS Statement: Those systems with pertinent positive or pertinent negative responses have been documented in the HPI. ROS Other: All systems not noted in ROS Statement are negative. Past Medical History Past Medical History: No Reported History Additional Past Medical History / Comment(s): chronic back pain, murmur History of Any Multi-Drug Resistant Organisms: None Reported Past Surgical History: No Surgical Hx Reported Past Psychological History: No Psychological Hx Reported Smoking Status: Former smoker Past Alcohol Use History: Occasional Past Drug Use History: None Reported - Past Family History Mother Family Medical History: Diabetes Mellitus, Hypertension General Exam Limitations: no limitations General appearance: alert, in no apparent distress Head exam: Present: atraumatic, normocephalic, normal inspection GI/Abdominal exam: Present: soft, normal bowel sounds. Absent: distended, tenderness, guarding, rebound, rigid Extremities exam: Present: normal inspection, full ROM, normal capillary refill. Absent: tenderness, pedal edema, joint swelling, calf tenderness Back exam: Present: normal inspection, full ROM, other (Full strength and range of motion of bilateral hips. No saddle anesthesia. Full range of motion sensation and DP pulses bilaterally). Absent: tenderness, CVA tenderness (R), CVA tenderness (L), paraspinal tenderness, rash noted Neurological exam: Present: alert, oriented X3 Psychiatric exam: Present: normal affect, normal mood Course Vital Signs 01/17/24 01/17/24 14:14 17:22 Temperature 97.9 F 98 F Pulse Rate 69 66 Respiratory 18 18 Rate Blood Pressure 144/84 152/84 O2 Sat by Pulse 98 98 Oximetry Medical Decision Making - Medical Decision Making Was pt. sent in by a medical professional or institution (, PA, OUTSIDE SALES INSPECTOR, urgent care, hospital, or custodial...) When possible be specific @ -No Did you speak to anyone other than the patient for history (EMS, parent, family, police, friend...)? What history was obtained from this source @ -No Did you review nursing and triage notes (agree or disagree)? Why? @ -I reviewed and agree with nursing and triage notes Were old charts reviewed (outside hosp., previous admission, EMS record, old EKG, old radiological studies, urgent care reports/EKG's, custodial records)? Report findings @ -No old charts were reviewed Differential Diagnosis (chest pain, altered mental status, abdominal pain women, abdominal pain men, vaginal bleeding, weakness, fever, dyspnea, syncope, headache, dizziness, GI bleed, back pain, seizure, CVA, palpatations, mental health, musculoskeletal)? @ -Differential Musculoskeletal Muscular strain, contusion, ligament sprain, fracture, arthritis, septic arthritis, bursitis, cellulitis, muscle spasm, nerve compression, DVT, arterial occlusion, herpes zoster, electrolyte abnormality, tumor.... This is not meant to be in all inclusive list EKG interpreted by me (3pts min.). @ -None X-rays interpreted by me (1pt min.). @ -X-ray reveals no vertebral compression, collapse, or malalignment, mild facet arthropathy lower lumbar spine CT interpreted by me (1pt min.). @ -None done U/S interpreted by me (1pt. min.). @ -None done What testing was considered but not performed or refused? (CT, X-rays, U/S, labs)? Why? @ -None What meds were considered but not given or refused? Why? @ -None Did you discuss the management of the patient with other professionals (professionals i.e. Dr., PA, OUTSIDE SALES INSPECTOR, lab, RT, psych nurse, health social work professor, case resolution specialist, teacher, chief development officer, case resolution specialist)? Give summary @ -No Was smoking cessation discussed for >3mins.? @ -No Was critical care preformed (if so, how long)? @ -No Were there social determinants of health that impacted care today? How? (Homelessness, low income, unemployed, alcoholism, drug addiction, transportation, low edu. Level, literacy, decrease access to med. care, usp, rehab)? @ -No Was there de-escalation of care discussed even if they declined (Discuss DNR or withdrawal of care, Hospice)? DNR status @ -No What co-morbidities impacted this encounter? (DM, HTN, Smoking, COPD, CAD, Cancer, CVA, ARF, Chemo, Hep., AIDS, mental health diagnosis, sleep apnea, morbid obesity)? @ -None Was patient admitted / discharged? Hospital course, mention meds given and route, prescriptions, significant lab abnormalities, going to OR and other pertinent info. @ -Patient was discharged. This is a 49-year-old male presenting with left lower back pain x 3 days with radiation left buttocks into left leg. No red flag symptoms such as low-grade fevers, IV drug use, loss of bowel or bladder control. Able to ambulate. Neurovascularly intact. Provided with gabapentin and prednisone. X-ray of the lumbar spine reveals no vertebral compression, collapse, or malalignment, there is mild facet arthropathy of the lower lumbar spine. Discussed findings with patient. Discussed diagnosis of sciatica. Supportive care and return precautions discussed and patient conveys understanding and agrees with plan. Patient has follow-up appointment with PCP in 2 days. Patient discharged with short dose of analgesics. Case was discussed with my ED attending Dr. Villafuerte. Patient discharged in stable condition. Undiagnosed new problem with uncertain prognosis? @ -No Drug Therapy requiring intensive monitoring for toxicity (Heparin, Nitro, Insulin, Cardizem)? @ -No Were any procedures done? @ -No Diagnosis/symptom? @ -Sciatica of left side Acute, or Chronic, or Acute on Chronic? @ -Acute Uncomplicated (without systemic symptoms) or Complicated (systemic symptoms)? @ -Uncomplicated Side effects of treatment? @ -No Exacerbation, Progression, or Severe Exacerbation? @ -No Poses a threat to life or bodily function? How? (Chest pain, [place], [place], pneumonia, PE, COPD, DKA, ARF, appy, cholecystitis, CVA, Diverticulitis, Homicidal, Suicidal, threat to staff... and all critical care pts) @ -No Disposition Clinical Impression: Sciatica of left side Disposition: HOME SELF-CARE Condition: Stable Instructions (If sedation given, give patient instructions): Sciatica (ED) Additional Instructions: Take Flexeril and [place] as directed for pain. Follow-up for appointment in 2 days. Prescriptions: Cyclobenzaprine [Flexeril] 10 mg PO TID PRN #15 tab PRN Reason: Muscle Spasm HYDROcodone/APAP 7.5-325MG [[place] 7.5-325] 1 tab PO Q6HR PRN 3 Days #12 tab PRN Reason: Pain Is patient prescribed a controlled substance at d/c from ED?: No Referrals: Aguila Ramirez MD [Primary Care Provider] - 1-2 days Time of Disposition: 17:08
[2024-01-17] MEDS: predniSONE 50 MG TAB PO STA (15:19)
[2024-01-17] MEDS: GABAPENTIN 300 MG CAP PO STA (15:19)
--- NOTE | 2024-01-17 15:48 | XR ---
EXAMINATION TYPE: XR lumbar spine 3V DATE OF EXAM: 01/17/2024 Comparison: 04/21/2019 Clinical History: 49-year-old male low back pain Findings: 5 lumbar type vertebral bodies. Vertebral body heights are preserved and alignment is maintained. Dis c interspaces are also preserved. However, there is straightening of the normal lumbar lordosis. Mild facet arthropathy lower lumbar spine. Impression: No vertebral compression collapse or malalignment. Mild facet arthropathy lower lumbar spine. Straigh tening of the normal lumbar lordosis could be positional or due to muscle spasm. [facility], Workstation: [facility], 01/17/2024 3:45 PM
[2024-01-17 17:24] VITALS: BP 152/84; PULSE 66; TEMP 98
== END 2024-01-17 17:23 | disposition home or self-care (01) ==
LOC: EC 14:12
CPT/HCPCS: 72100; 99283

== ENCOUNTER → 2024-02-27 | Outpatient (CLI) | payer OTHER ==
--- NOTE | 2024-02-27 13:46 | CT ---
EXAMINATION TYPE: CT abdomen wo/w con CT DLP: 2000.6 mGycm, Automated exposure control for dose reduction was used. DATE OF EXAM: 02/27/2024 12:57 PM COMPARISON: MRI lumbar spine 04/21/2019 CLINICAL INDICATION:Male, 49 years old with history of N28.1 CYST OF KIDNEY, ACQUIRED; Cyst of kidney found on prior MRI. TECHNIQUE: Standard CT of the abdomen before and after the uneventful administration of 100 cc of I sovue-300 intravenously. Delayed imaging was obtained. Oral contrast was administered. Coronal and sa gittal reformats were performed. FINDINGS: LOWER CHEST: Unremarkable ABDOMEN LIVER: Unremarkable GALLBLADDER AND BILE DUCTS: Unremarkable. PANCREAS: Unremarkable. SPLEEN: Unremarkable. ADRENAL GLANDS: Unremarkable. KIDNEYS AND URETERS: No evidence of hydronephrosis or renal calculus. Right renal mid to upper pole n onenhancing cyst identified measuring 1.7 cm (series 6, image 36). No enhancing renal mass identified . The kidneys enhance symmetrically. Contrast is demonstrated within both collecting systems on the d elayed phase. STOMACH AND BOWEL: Stomach is unremarkable. Small periampullary duodenal diverticulum. Enteric contra st reaches the mid small bowel. The appendix is within normal limits. No focal bowel wall thickening or surrounding inflammatory changes. No evidence of bowel obstruction. PERITONEUM: No evidence of pneumoperitoneum or free fluid. VASCULATURE: No evidence of aortic aneurysm. MUSCULOSKELETAL: No acute osseous abnormalities LYMPH NODES: No evidence for lymphadenopathy. SOFT TISSUE/ABDOMINAL WALL: Unremarkable IMPRESSION: Right renal nonenhancing 1.7 cm cyst. No suspicious enhancing renal lesions. [facility], , 02/27/2024 1:44 PM
== END | disposition home or self-care (01) ==
LOC: RADCTMAIN 11:57
PROVIDERS: ATTEND Family Medicine
DX: N28.1 Cyst of kidney, acquired (principal)
CPT/HCPCS: 74170